=== PATIENT | male | born 1950 | race Caucasian/White ===

== ENCOUNTER 2017-12-29 11:44 | Emergency (ER) | payer OTHER ==
[~2017-12-29] VITALS: Ht 170.2 cm; Wt 84.4 kg
[~2017-12-29 11:44] MED LIST: ALBU90OI INH; AMIO200 PO; ASPI325 PO; ATOR20 PO; ATOR40TA PO; CARB100CH PO; CARB200 PO; CARB200ER PO; CYCL10 PO; DOCU100 PO; DULO60 PO; FAMO20 PO; Glucophage PO; HYDACE5 PO; HYDACE5325 PO; LEVSOD75 PO; Lisinopril2.5 MG PO; MEDICAL MARIJUANA; MELO7.5; MELO7.5 PO; METF500 PO; METO100 PO; METO25ER PO; Mobic15 MG PO; NAPR500 PO; OXYC5 PO; PROM25 PO; RANI150 PO; RXCYCL10 PO; TRIHYD253B PO; TRIHYD5075 PO; WARF5 PO; XARELTO20 MG PO
[2017-12-29] MEDS ORDERED: Prednisone20 MG PO (13:57)
[2017-12-29] MEDS ORDERED: CEPH500 PO (13:57)
== END 2017-12-29 14:09 | disposition home or self-care (01) ==
LOC: ER 11:44
DX: M79.675 Pain in left toe(s) (principal); Z88.2 Allergy status to sulfonamides; Z79.899 Other long term (current) drug therapy; G40.909 Epilepsy, unspecified, not intractable, without status epilepticus; E11.9 Type 2 diabetes mellitus without complications; F17.290 Nicotine dependence, other tobacco product, uncomplicated
CPT/HCPCS: 73660; 99283

== ENCOUNTER 2018-02-22 18:23 | Emergency (ER) | payer OTHER ==
[~2018-02-22] VITALS: Ht 167.6 cm; Wt 88.9 kg
[~2018-02-22 18:23] MED LIST changes: +CEPH500 PO; +Prednisone20 MG PO
== END 2018-02-22 20:33 | disposition home or self-care (01) ==
LOC: ER 18:23
DX: M75.81 Other shoulder lesions, right shoulder (principal); Z88.2 Allergy status to sulfonamides; Z79.899 Other long term (current) drug therapy; G40.909 Epilepsy, unspecified, not intractable, without status epilepticus; E11.9 Type 2 diabetes mellitus without complications; Z87.891 Personal history of nicotine dependence
CPT/HCPCS: 73030; 96372; 99283; J1885

== ENCOUNTER 2018-05-24 14:07 | Emergency (ER) | payer OTHER ==
[~2018-05-24] VITALS: Ht 170.2 cm; Wt 90.7 kg
[2018-05-24 16:21] LABS: BASOPHILS ABSOLUTE AUTO 0.04 K/mm3 (0.00-0.23); BASOPHILS PERCENT AUTO 1 % (0-2); EOSINOPHILS ABSOLUTE AUTO 0.56 K/mm3 (0.00-0.68); EOSINOPHILS PERCENT AUTO 6 % (0-6); Hematocrit 41.4 % (37.0-53.0); Hemoglobin 13.6 g/dL (13.5-17.5); IMMATURE GRAN ABSOLUTE AUTO 0.03 K/mm3 (0.00-0.10); IMMATURE GRAN PERCENT AUTO 0 % (0-1); LYMPHOCYTES ABSOLUTE AUTO 1.65 K/mm3 (0.84-5.20); LYMPHOCYTES PERCENT AUTO 19 % (21-46); MONOCYTES ABSOLUTE AUTO 1.06 K/mm3 (0.16-1.47); MONOCYTES PERCENT AUTO 12 % (4-13); Mean Corpuscular HGB 31.6 pg (26.0-34.0); Mean Corpuscular HGB Conc 32.9 g/dL (31.5-36.5); Mean Corpuscular Volume 96 fL (80-100); Mean Platelet Volume 10.2 fL (9.1-12.4); NEUTROPHILS ABSOLUTE AUTO 5.49 K/mm3 (1.96-9.15); NEUTROPHILS PERCENT AUTO 62 % (41-73); Platelet Count 238 K/mm3 (150-400); RDW Coefficient Variation 14.4 % (11.7-14.2); RDW Standard Deviation 51.4 fL (35.1-46.3); Red Blood Cell Count 4.31 M/mm3 (4.30-5.90); White Blood Cell Count 8.83 K/mm3 (4.00-11.30)
[2018-05-24] MEDS ORDERED: Tylenol325 MG PO (17:09)
== END 2018-05-24 17:16 | disposition home or self-care (01) ==
LOC: ER 14:07
PROVIDERS: Physician Assistant
DX: M79.671 Pain in right foot (principal); I25.10 Atherosclerotic heart disease of native coronary artery without angina pectoris; E11.9 Type 2 diabetes mellitus without complications; I10 Essential (primary) hypertension; Z87.891 Personal history of nicotine dependence; G40.909 Epilepsy, unspecified, not intractable, without status epilepticus; Z88.2 Allergy status to sulfonamides; Z79.899 Other long term (current) drug therapy
CPT/HCPCS: 73630; 84550; 85025; 99283-25

== ENCOUNTER → 2019-01-03 | Outpatient (CLI) | payer OTHER ==
[~2019-01-03] MED LIST changes: +Tylenol325 MG PO
== END | disposition home or self-care (01) ==
LOC: LAB SHORT 13:03 → LAB 13:03
DX: J02.9 Acute pharyngitis, unspecified (principal)
CPT/HCPCS: 87070

== ENCOUNTER 2019-01-26 11:05 | Day surgery (SDC) | payer OTHER ==
[~2019-01-26] VITALS: Ht 172.7 cm; Wt 90.9 kg
[~2019-01-26 11:05] MED LIST changes: +CHOL10002 PO; +CYAN500 PO; +DILTIAZEM 24HR240 M1 PO; +MELA3 PO; +METF500C PO
--- NOTE | 2019-01-26 12:13 | NUR ---
PT TALKING WITH FAMILY WITH CALL LIGHT IN REACH.
== END 2019-01-26 13:45 | disposition home or self-care (01) ==
LOC: MHTC 11:05
DX: I48.92 Unspecified atrial flutter (principal); I12.9 Hypertensive chronic kidney disease with stage 1 through stage 4 chronic kidney disease, or unspecified chronic kidney disease; E11.22 Type 2 diabetes mellitus with diabetic chronic kidney disease; N18.9 Chronic kidney disease, unspecified; I25.10 Atherosclerotic heart disease of native coronary artery without angina pectoris; J44.9 Chronic obstructive pulmonary disease, unspecified; E78.5 Hyperlipidemia, unspecified; E03.9 Hypothyroidism, unspecified; F17.210 Nicotine dependence, cigarettes, uncomplicated; Z79.899 Other long term (current) drug therapy; Z79.84 Long term (current) use of oral hypoglycemic drugs; Z79.82 Long term (current) use of aspirin; Z88.2 Allergy status to sulfonamides
CPT/HCPCS: 92960; 93005; 93010; 99152; J2250; J3010; J7030

== ENCOUNTER 2019-03-12 10:28 | Emergency (ER) | payer OTHER ==
[~2019-03-12] VITALS: Ht 170.2 cm; Wt 93.4 kg
[2019-03-12] MEDS ORDERED: METO25ER PO (10:33)
[2019-03-12 11:04] LABS: BASOPHILS ABSOLUTE AUTO 0.02 K/mm3 (0.00-0.23); BASOPHILS PERCENT AUTO 0 % (0-2); EOSINOPHILS ABSOLUTE AUTO 0.39 K/mm3 (0.00-0.68); EOSINOPHILS PERCENT AUTO 5 % (0-6); Hemoglobin 12.3 g/dL (13.5-17.5); IMMATURE GRAN ABSOLUTE AUTO 0.03 K/mm3 (0.00-0.10); IMMATURE GRAN PERCENT AUTO 0 % (0-1); LYMPHOCYTES ABSOLUTE AUTO 1.45 K/mm3 (0.84-5.20); LYMPHOCYTES PERCENT AUTO 17 % (21-46); MONOCYTES ABSOLUTE AUTO 0.86 K/mm3 (0.16-1.47); MONOCYTES PERCENT AUTO 10 % (4-13); Mean Corpuscular HGB 31.9 pg (26.0-34.0); Mean Corpuscular HGB Conc 33.2 g/dL (31.5-36.5); Mean Corpuscular Volume 96 fL (80-100); Mean Platelet Volume 10.2 fL (9.1-12.4); NEUTROPHILS ABSOLUTE AUTO 5.93 K/mm3 (1.96-9.15); NEUTROPHILS PERCENT AUTO 68 % (41-73); Platelet Count 153 K/mm3 (150-400); RDW Standard Deviation 49.2 fL (35.1-46.3); Red Blood Cell Count 3.85 M/mm3 (4.30-5.90); White Blood Cell Count 8.68 K/mm3 (4.00-11.30)
[2019-03-12 11:19] LABS: Alanine Aminotransfer (ALT/SGP 30 U/L (12-78); Albumin, Blood 3.4 g/dL (3.4-5.0); Albumin/Globulin Ratio 0.7 (0.8-1.8); Alk Phos 109 U/L (50-136); Anion Gap 7 mmol/L (6-16); Aspartate Aminotrans (AST/SGOT 15 U/L (12-37); Bilirubin, Total 0.7 mg/dL (0.1-1.0); Blood Urea Nitrogen 25 mg/dL (8-24); Bun/Creatinine Ratio 24.3 (12.0-20.0); CO2, Blood 29 mmol/L (21-32); Calcium, Blood 9.2 mg/dL (8.5-10.1); Chloride, Blood 103 mmol/L (98-108); Creatinine, Blood 1.03 mg/dL (0.60-1.20); Globulin, Blood 4.7 g/dL (2.2-4.0); Glomerular Filtration Rate >60 (60-); Glucose, Blood 128 mg/dL (70-99); Potassium, Blood 3.8 mmol/L (3.5-5.5); Sodium, Blood 139 mmol/L (136-145); Total Protein, Blood 8.1 g/dL (6.4-8.2)
== END 2019-03-12 12:20 | disposition home or self-care (01) ==
LOC: ER 10:28
PROVIDERS: Emergency Medicine
DX: M25.572 Pain in left ankle and joints of left foot (principal); R53.1 Weakness; W18.30XA Fall on same level, unspecified, initial encounter; Z88.2 Allergy status to sulfonamides; Z79.899 Other long term (current) drug therapy; Z79.84 Long term (current) use of oral hypoglycemic drugs; G40.909 Epilepsy, unspecified, not intractable, without status epilepticus; E11.9 Type 2 diabetes mellitus without complications; I10 Essential (primary) hypertension; Z87.891 Personal history of nicotine dependence; I25.10 Atherosclerotic heart disease of native coronary artery without angina pectoris
CPT/HCPCS: 36415; 71045; 73610; 80053; 85025; 99284-25

== ENCOUNTER 2019-11-29 19:47 | Observation (INO) | payer OTHER ==
[~2019-11-29] VITALS: Ht 170.2 cm; Wt 97.8 kg
[~2019-11-29 19:47] MED LIST changes: -ATOR40TA PO; -CHOL10002 PO; +LEVOXYL88 MCG PO; -METF500C PO; +VITAMIN D-32000 UNIT PO
[2019-11-29 20:41] LABS: BASOPHILS ABSOLUTE AUTO 0.04 K/mm3 (0.00-0.23); BASOPHILS PERCENT AUTO 0 % (0-2); EOSINOPHILS ABSOLUTE AUTO 0.53 K/mm3 (0.00-0.68); EOSINOPHILS PERCENT AUTO 5 % (0-6); Hematocrit 42.1 % (37.0-53.0); Hemoglobin 13.5 g/dL (13.5-17.5); IMMATURE GRAN ABSOLUTE AUTO 0.06 K/mm3 (0.00-0.10); IMMATURE GRAN PERCENT AUTO 1 % (0-1); LYMPHOCYTES ABSOLUTE AUTO 2.05 K/mm3 (0.84-5.20); LYMPHOCYTES PERCENT AUTO 19 % (21-46); MONOCYTES ABSOLUTE AUTO 0.91 K/mm3 (0.16-1.47); MONOCYTES PERCENT AUTO 9 % (4-13); Mean Corpuscular HGB 31.9 pg (26.0-34.0); Mean Corpuscular HGB Conc 32.1 g/dL (31.5-36.5); Mean Corpuscular Volume 100 fL (80-100); Mean Platelet Volume 10.7 fL (9.1-12.4); NEUTROPHILS ABSOLUTE AUTO 7.08 K/mm3 (1.96-9.15); NEUTROPHILS PERCENT AUTO 66 % (41-73); Platelet Count 209 K/mm3 (150-400); RDW Coefficient Variation 14.5 % (11.7-14.2); Red Blood Cell Count 4.23 M/mm3 (4.30-5.90); White Blood Cell Count 10.67 K/mm3 (4.00-11.30)
[2019-11-29 21:01] LABS: Alanine Aminotransfer (ALT/SGP 39 U/L (12-78); Albumin, Blood 3.4 g/dL (3.4-5.0); Albumin/Globulin Ratio 0.7 (0.8-1.8); Alk Phos 122 U/L (50-136); Anion Gap 7 mmol/L (6-16); Aspartate Aminotrans (AST/SGOT 29 U/L (12-37); Bilirubin, Total 0.4 mg/dL (0.1-1.0); Blood Urea Nitrogen 28 mg/dL (8-24); CO2, Blood 28 mmol/L (21-32); Calcium, Blood 9.5 mg/dL (8.5-10.1); Chloride, Blood 102 mmol/L (98-108); Creatinine, Blood 1.27 mg/dL (0.60-1.20); Globulin, Blood 4.9 g/dL (2.2-4.0); Glomerular Filtration Rate 59 (60-); Glucose, Blood 115 mg/dL (70-99); Potassium, Blood 4.5 mmol/L (3.5-5.5); Sodium, Blood 137 mmol/L (136-145); Total Protein, Blood 8.3 g/dL (6.4-8.2); Troponin I <0.015 ng/mL (0.000-0.040)
[2019-11-29 21:41] LABS: International Normalized Ratio 1.15; Prothrombin Time Results 12.2 Sec (9.7-11.5)
[2019-11-29] MEDS ORDERED: BACLOFEN5 MG PO (21:56)
[2019-11-29] MEDS ORDERED: ACET325 PO (21:58)
[2019-11-30 01:09] LABS: Source, Urine Clean Catch
[2019-11-30 01:15] LABS: Bilirubin, Urine Neg (Neg); Blood, Urine Neg (Neg); Glucose Qualitative, Urine Neg (Neg); Ketones, Urine Neg (Neg); Leukocyte Esterase, Urine Neg (Neg); Nitrite, Urine Neg (Neg); Protein, Urine Neg (Neg); Specific Gravity, Urine 1.015 (1.003-1.022); Urobilinogen, Urine NORM (Normal)
[2019-11-30 01:18] LABS: Appearance, Urine Clear (Clear); Color, Urine Yellow (P-Yellow)
--- NOTE | 2019-11-30 09:01 | NUR ---
Echocardiogram completed.
--- NOTE | 2019-11-30 14:32 | NUR ---
Additional echo images with 0.50ml of Definity contrast performed.
[2019-11-30] MEDS ORDERED: Baza Protect C142 GM TOP (14:43)
[2019-11-30] MEDS ORDERED: ALMACONE SUSPE355 ML PO (14:43)
[2019-11-30] MEDS ORDERED: BISA10S PR (14:44)
[2019-11-30] MEDS ORDERED: Enema133 M1 PR (14:44)
[2019-11-30] MEDS ORDERED: Anti-Diarrheal2 MG PO (14:45)
[2019-11-30] MEDS ORDERED: MILK OF MA400 MG/5 M PO (14:45)
[2019-11-30] MEDS ORDERED: ONDA4ODT MM (14:45)
[2019-11-30] MEDS ORDERED: Triple Antibio1 EACH TOP (14:46)
--- NOTE | 2019-11-30 18:26 | NUR ---
PT ARRIVED TO THE FLOOR THIS AFTERNOON. PT DENIES ANY FURTHER EPISODES OF SYNCOPY. PT ALERT AND ORIENTED, COOPERATIVE WITH CARE. PT UP IN BED WATCHING TELEVISION, NO FURTHER NEEDS AT THIS TIME.
--- NOTE | 2019-12-01 06:39 | NUR ---
SHIFT SUMMARY PT IS A 69 Y/O MALE, ADMITTED FOR A SYNCOPAL EPISODE AND COLLAPSE. HE IS A&O X 3, THOUGH FORGETFUL, AND A SBA WITH A FWW. TELE SHOWED SB/NSR IN THE 50-60S. NO COMPLAINTS OF PAIN, NAUSEA OR SOB. VITAL SIGNS STABLE. NO ACUTE CHANGES IN PT CONDITION NOTED. PT SLEPT WELL DURING THE NIGHT. WILL CONTINUE TO MONITOR AND TREAT PER EMAR UNTIL HAND OFF TO DAY SHIFT RN.
[2019-12-01 08:41] LABS: Anion Gap 5 mmol/L (6-16); Blood Urea Nitrogen 23 mg/dL (8-24); Bun/Creatinine Ratio 20.5 (12.0-20.0); CO2, Blood 29 mmol/L (21-32); Calcium, Blood 9.5 mg/dL (8.5-10.1); Chloride, Blood 107 mmol/L (98-108); Creatinine, Blood 1.12 mg/dL (0.60-1.20); Glomerular Filtration Rate >60 (60-); Glucose, Blood 121 mg/dL (70-99); Potassium, Blood 4.2 mmol/L (3.5-5.5); Sodium, Blood 141 mmol/L (136-145)
--- NOTE | 2019-12-01 18:42 | NUR ---
DISCHARGE NOTE PT DISCHARGED TO [facility] (HOME). SEE FAMILY SOCIOLOGIST NOTE. PT EDUCATED ON DISCHARGE INSTRUCTIONS AND MEDICATIONS. IV DC'D AND BELONGINGS RETURNED. HEART MONITOR PLACE PRIOR TO DC. PT LEFT ROOM VIA WHEELCHAIR AT 1620 VIA COOKER LOADER ESCORT TO TAXI AT PATIENT ENTRANCE.
== END 2019-12-01 16:41 | disposition home or self-care (01) ==
LOC: ER 19:47 → ERHOLD 19:48 → MEDS 11-30 13:09
PROVIDERS: Emergency Medicine; Internal Medicine; ADMIT Internal Medicine
DX: R55 Syncope and collapse (principal); I12.9 Hypertensive chronic kidney disease with stage 1 through stage 4 chronic kidney disease, or unspecified chronic kidney disease; E11.22 Type 2 diabetes mellitus with diabetic chronic kidney disease; N18.9 Chronic kidney disease, unspecified; I48.91 Unspecified atrial fibrillation; E03.9 Hypothyroidism, unspecified; F17.210 Nicotine dependence, cigarettes, uncomplicated; I25.10 Atherosclerotic heart disease of native coronary artery without angina pectoris; R00.1 Bradycardia, unspecified; Z95.1 Presence of aortocoronary bypass graft; Z95.2 Presence of prosthetic heart valve; Z88.2 Allergy status to sulfonamides; Z79.84 Long term (current) use of oral hypoglycemic drugs; Z79.899 Other long term (current) drug therapy
CPT/HCPCS: 36415; 70450; 71046; 80048; 80053; 81003; 84484; 85025; 85610; 85730; 87081; 90670; 93005; 93010; 93225; 93880; 97116; 97162; 97165; 99285-25; A9270; A9270-GY; C8929; G0378; Q9957

== ENCOUNTER → 2019-12-05 | Outpatient (CLI) | payer OTHER ==
[~2019-12-05] MED LIST changes: +ACET325 PO; +ALMACONE SUSPE355 ML PO; +Anti-Diarrheal2 MG PO; +BACLOFEN5 MG PO; +BISA10S PR; +Baza Protect C142 GM TOP; +Enema133 M1 PR; +MILK OF MA400 MG/5 M PO; +ONDA4ODT MM; +Triple Antibio1 EACH TOP
[2019-12-05 21:07] LABS: Bilirubin, Urine Neg (Neg); Blood, Urine Neg (Neg); Glucose Qualitative, Urine Neg (Neg); Ketones, Urine Neg (Neg); Leukocyte Esterase, Urine Neg (Neg); Nitrite, Urine Neg (Neg); Protein, Urine Neg (Neg); Urobilinogen, Urine NORM (Normal)
[2019-12-05 21:22] LABS: Appearance, Urine Clear (Clear); Color, Urine Yellow (P-Yellow)
== END | disposition home or self-care (01) ==
LOC: LAB 19:56 → LAB SHORT 19:56
PROVIDERS: Family Medicine
DX: N39.0 Urinary tract infection, site not specified (principal); E78.5 Hyperlipidemia, unspecified; Z71.89 Other specified counseling
CPT/HCPCS: 81003

== ENCOUNTER → 2020-02-15 | Outpatient (CLI) | payer OTHER | END | disposition home or self-care (01) | LOC: LAB SHORT 08:20 → LAB 08:20 | DX: E11.00 Type 2 diabetes mellitus with hyperosmolarity without nonketotic hyperglycemic-hyperosmolar coma (NKHHC) (principal) | CPT/HCPCS: 83036 ==

== ENCOUNTER 2020-03-13 12:12 | Day surgery (SDC) | payer OTHER ==
[~2020-03-13] VITALS: Ht 172.7 cm; Wt 101.9 kg
[~2020-03-13 12:12] MED LIST changes: +B-121000 MC3 PO; +Cymbalta60 MG PO; +EUTHYROX88 MCG PO; +LISINOPRIL2.5 MG PO; +OMEP20ER PO; +Vitamin D2000 UNIT PO
== END 2020-03-13 15:41 | disposition home or self-care (01) ==
LOC: ORSCSDS 12:12
PROVIDERS: Internal Medicine Gastroenterology
PROC: 0DBL8ZX Excision of Transverse Colon, Via Natural or Artificial Opening Endoscopic, Diagnostic (ICD-10-PCS; principal; 2020-03-13 14:00)
PROC: 0DBP8ZX Excision of Rectum, Via Natural or Artificial Opening Endoscopic, Diagnostic (ICD-10-PCS; principal; 2020-03-13 14:00)
DX: Z12.11 Encounter for screening for malignant neoplasm of colon (principal); Z86.010 Personal history of colon polyps; D12.3 Benign neoplasm of transverse colon; K63.5 Polyp of colon; K64.8 Other hemorrhoids; I48.91 Unspecified atrial fibrillation; E78.5 Hyperlipidemia, unspecified; I25.10 Atherosclerotic heart disease of native coronary artery without angina pectoris; I12.9 Hypertensive chronic kidney disease with stage 1 through stage 4 chronic kidney disease, or unspecified chronic kidney disease; E11.22 Type 2 diabetes mellitus with diabetic chronic kidney disease; N18.9 Chronic kidney disease, unspecified; Z79.84 Long term (current) use of oral hypoglycemic drugs
CPT/HCPCS: 82947; 88305; J2704; J7120

== ENCOUNTER → 2020-08-02 | Outpatient (CLI) | payer OTHER ==
[2020-08-03 12:57] LABS: Source, Urine Clean Catch
[2020-08-03 14:05] LABS: Appearance, Urine Clear (Clear); Blood, Urine Neg (Neg); Color, Urine Yellow (P-Yellow); Glucose Qualitative, Urine Neg (Neg); Ketones, Urine 1+ (Neg); Leukocyte Esterase, Urine Neg (Neg); Nitrite, Urine Neg (Neg); Protein, Urine 2+ (Neg); Urobilinogen, Urine NORM (Normal)
[2020-08-03 14:35] LABS: Bilirubin, Urine 1+ (Neg)
[2020-08-03 14:36] LABS: Bacteria Rare /hpf; Calcium Oxalate Crystals Few /hpf; Mucus Light (0-Heavy); Red Blood Cells, Urine Not Seen /hpf (0-2); Squamous Epithelial Cells Rare /hpf (Few); White Blood Cells, Urine Not Seen /hpf (0-5)
== END | disposition home or self-care (01) ==
LOC: LAB SHORT 12:53 → LAB 12:53
PROVIDERS: Family Medicine
DX: N39.0 Urinary tract infection, site not specified (principal)
CPT/HCPCS: 81001

== ENCOUNTER → 2020-11-28 | Outpatient (CLI) | payer OTHER ==
[~2020-11-28] MED LIST changes: +ALUM-MAG HYDROX30 ML PO; +Acetaminophen325 M1 PO; +BACLOFEN5 M1 PO; +CLOBETASOL EMOL15 G2 TOP; -Cymbalta60 MG PO; +DULCOLAX400 MG/5 M PO; -EUTHYROX88 MCG PO; +LEVSOD88 PO; -LISINOPRIL2.5 MG PO; +LOPE2C PO; -OMEP20ER PO; +ONDA4ODT SL; +Prilosec Otc20 MG PO; +Q-Tussin100 MG/5 M PO; +THERA-D2000 UNIT PO; +TRIPLE ANTIBIOT28 GM TOP
[2020-11-28 12:36] LABS: Albumin, Blood 3.2 g/dL (3.4-5.0); Anion Gap 6 mmol/L (6-16); Blood Urea Nitrogen 29 mg/dL (8-24); Bun/Creatinine Ratio 25.4 (12.0-20.0); CHOL/HDL RATIO 3.4; CO2, Blood 29 mmol/L (21-32); Calcium, Blood 9.5 mg/dL (8.5-10.1); Chloride, Blood 107 mmol/L (98-108); Cholesterol 129 mg/dL (50-200); Creatinine, Blood 1.14 mg/dL (0.60-1.20); Glomerular Filtration Rate >60 (60-); Glucose, Blood 94 mg/dL (70-99); HDL Cholesterol 38 mg/dL (>39); LDL/HDL RATIO 1.8; Low Density Lipoprotein Chol 69 mg/dL (0-110); Phosphorus, Blood 3.6 mg/dL (2.5-4.9); Potassium, Blood 4.1 mmol/L (3.5-5.5); Sodium, Blood 142 mmol/L (136-145); Triglycerides 109 mg/dL (30-160); Very Low Density Lipoprot Chol 21 mg/dL (6-32)
== END | disposition home or self-care (01) ==
LOC: LAB SHORT 09:08 → LAB 09:08 → EDSTATUS 08-27 10:45 → LAB FUT 08-27 10:45
PROVIDERS: Family Medicine
DX: E78.5 Hyperlipidemia, unspecified (principal); E11.9 Type 2 diabetes mellitus without complications
CPT/HCPCS: 80061; 80069; 83036

== ENCOUNTER 2021-03-01 09:38 | Inpatient (IN) | payer OTHER ==
[~2021-03-01] VITALS: Ht 170.2 cm; Wt 93.1 kg
[~2021-03-01 09:38] MED LIST changes: -ALUM-MAG HYDROX30 ML PO; -Acetaminophen325 M1 PO; -BACLOFEN5 M1 PO; -CLOBETASOL EMOL15 G2 TOP; -DULCOLAX400 MG/5 M PO; -LEVSOD88 PO; -LOPE2C PO; -ONDA4ODT SL; -Prilosec Otc20 MG PO; -Q-Tussin100 MG/5 M PO; -THERA-D2000 UNIT PO; -TRIPLE ANTIBIOT28 GM TOP
[2021-03-01] MEDS ORDERED: DULO60 PO (09:58)
[2021-03-01] MEDS ORDERED: BACLOFEN5 M1 PO (09:58)
[2021-03-01] MEDS ORDERED: ATOR20 PO (09:58)
[2021-03-01] MEDS ORDERED: Lisinopril2.5 MG PO (09:59)
[2021-03-01] MEDS ORDERED: LEVSOD88 PO (09:59)
[2021-03-01] MEDS ORDERED: METF500 PO (09:59)
[2021-03-01] MEDS ORDERED: Prilosec Otc20 MG PO (10:00)
[2021-03-01] MEDS ORDERED: METO25ER PO (10:00)
[2021-03-01] MEDS ORDERED: XARELTO20 MG PO (10:01)
[2021-03-01] MEDS ORDERED: Acetaminophen325 M1 PO (10:01)
[2021-03-01] MEDS ORDERED: THERA-D2000 UNIT PO (10:01)
[2021-03-01 10:13] LABS: BASOPHILS ABSOLUTE AUTO 0.03 K/mm3 (0.00-0.23); BASOPHILS PERCENT AUTO 0 % (0-2); EOSINOPHILS ABSOLUTE AUTO 0.12 K/mm3 (0.00-0.68); EOSINOPHILS PERCENT AUTO 1 % (0-6); IMMATURE GRAN ABSOLUTE AUTO 0.14 K/mm3 (0.00-0.10); IMMATURE GRAN PERCENT AUTO 1 % (0-1); LYMPHOCYTES ABSOLUTE AUTO 1.28 K/mm3 (0.84-5.20); LYMPHOCYTES PERCENT AUTO 11 % (21-46); MONOCYTES ABSOLUTE AUTO 1.24 K/mm3 (0.16-1.47); MONOCYTES PERCENT AUTO 11 % (4-13); Mean Corpuscular HGB 19.4 pg (26.0-34.0); Mean Corpuscular HGB Conc 24.7 g/dL (31.5-36.5); Mean Corpuscular Volume 78 fL (80-100); Mean Platelet Volume 11.2 fL (9.1-12.4); NEUTROPHILS PERCENT AUTO 75 % (41-73); NRBC ABSOLUTE 0.25 K/mm3 (0.00-0.02); NRBC Auto 2.2 /100 WBC (0.0-0.2); Platelet Count 225 K/mm3 (150-400); RDW Coefficient Variation 19.7 % (11.7-14.2); RDW Standard Deviation 55.3 fL (35.1-46.3); Red Blood Cell Count 2.22 M/mm3 (4.30-5.90); White Blood Cell Count 11.31 K/mm3 (4.00-11.30)
[2021-03-01 10:28] LABS: Troponin I 0.099 ng/mL (0.000-0.040)
[2021-03-01 10:44] LABS: Albumin, Blood 3.2 g/dL (3.4-5.0); Albumin/Globulin Ratio 0.7 (0.8-1.8); Bilirubin, Total 0.4 mg/dL (0.1-1.0); Bun/Creatinine Ratio 33.3 (12.0-20.0); Creatinine, Blood 1.59 mg/dL (0.60-1.20); Globulin, Blood 4.3 g/dL (2.2-4.0); Potassium, Blood 4.3 mmol/L (3.5-5.5); Total Protein, Blood 7.5 g/dL (6.4-8.2)
[2021-03-01 10:49] LABS: International Normalized Ratio 1.33; Prothrombin Time Results 14.1 Sec (9.7-11.5)
[2021-03-01 10:53] LABS: Hemoglobin 4.3 g/dL (13.5-17.5)
[2021-03-01 10:54] LABS: Hematocrit 17.4 % (37.0-53.0)
[2021-03-01] MEDS ORDERED: ALUM-MAG HYDROX30 ML PO (12:45)
[2021-03-01] MEDS ORDERED: ONDA4ODT SL (12:46)
[2021-03-01] MEDS ORDERED: DULCOLAX400 MG/5 M PO (12:46)
[2021-03-01] MEDS ORDERED: TRIPLE ANTIBIOT28 GM TOP (12:48)
[2021-03-01 12:50] LABS: Percent Saturation 2.5 % (20.0-50.0)
[2021-03-01] MEDS ORDERED: CLOBETASOL EMOL15 G2 TOP (12:53)
[2021-03-01] MEDS ORDERED: Q-Tussin100 MG/5 M PO (12:53)
[2021-03-01] MEDS ORDERED: LOPE2C PO (12:54)
[2021-03-01] MEDS ORDERED: BISA10S PR (12:54)
[2021-03-01 13:18] LABS: Hematocrit 14.5 % (37.0-53.0); Hemoglobin 3.9 g/dL (13.5-17.5)
[2021-03-01 14:48] LABS: Source, Urine Clean Catch
[2021-03-01 15:02] LABS: SARS-Cov-2 (COVID-19) PCR, MMC NEGATIVE (NEGATIVE)
[2021-03-01 15:03] LABS: Appearance, Urine Hazy (Clear); Bilirubin, Urine Neg (Neg); Blood, Urine 2+ (Neg); Color, Urine Yellow (P-Yellow); Glucose Qualitative, Urine Neg (Neg); Ketones, Urine 1+ (Neg); Leukocyte Esterase, Urine 2+ (Neg); Nitrite, Urine Neg (Neg); Protein, Urine 2+ (Neg); Specific Gravity, Urine 1.015 (1.003-1.022); Urobilinogen, Urine NORM (Normal)
[2021-03-01 15:20] LABS: Bacteria Many /hpf; Squamous Epithelial Cells Few /hpf (Few); White Blood Cells, Urine 25-50 /hpf (0-5)
[2021-03-01 16:47] LABS: Hematocrit 16.2 % (37.0-53.0); Hemoglobin 4.5 g/dL (13.5-17.5)
--- NOTE | 2021-03-01 18:40 | NUR ---
PT ARRIVED JUST BEFORE 1700 FROM ER VIA [facility]. PT IS A/O X4. DENIES PAIN AND N/V. PT STATES HE HAS BEEN GETTING SOB RECENTLY. ONE UNIT OF PRBC'S GIVEN IN ER AND SECOND UNIT BROUGHT WITH PT BUT NOT STARTED YET. STARTED UNIT OF BLOOD PROMPTLY. VITALS ARE STABLE. PT STATES HE HAS HAD SOME BLACK STOOL AT HOME. PROTONIX GTT RUNNNING. DR. JEFFERY SAW PT IN ER AND POSSIBLEY GOING TO DO EGD TONIGHT. NO SIGN OF BLEEDING YET. CALL LIGHT IN REACH AND PT DEMONSTRATES PROPER USE OF LIGHT. NO SIGN OF DISTRESS.
--- NOTE | 2021-03-01 19:20 | NUR ---
ASSUMING PT CARE: PT LAYING IN BED, RESTING W/ EYES CLOSED. AWAKES WHEN STAFF ENTERS ROOM, APPROPRIATELY INTERACTIVE & PLEASANT, HOWEVER PT IS UNSURE WHY HE IS IN THE HOSPITAL & IS OFTEN CONFUSED BY VS EQUIP, OFTEN PULLING OFF LEADS & PROBES. ABLE TO FOLLOW SIMPLE COMMANDS, EASILY REDIRECTED. VS STABLE. PT DENIES ANY COMPLAINTS. SEE INITIAL ASSESSMENT FOR FULL ASSESSMENT. BLOOD TRANSFUSION COMPLETE.
[2021-03-01 19:56] LABS: Hematocrit 19.2 % (37.0-53.0)
[2021-03-01 19:58] LABS: Hemoglobin 5.6 g/dL (13.5-17.5)
--- NOTE | 2021-03-01 20:11 | NUR ---
03/01/212010 Ravinder Rivas History, Chart, Medications and Allergies reviewed before start of procedure.MONITOR INTACT WITH CONTINUOUS PULSE OXIMETRY AND INTERMITTENT BP.3-LEAD EKG REVIEWED WITH PHYSICIAN PRIOR TO START OF PROCEDURE.O2 VIA N/C INTACT THROUGHOUT SEDATION/PROCEDURE. PATIENT DETERMINED TO BE ASA APPROPRIATE FOR PROPOFOL SEDATION PRIOR TO START OF PROCEDURE BY DR. JEFFERY.
--- NOTE | 2021-03-01 21:18 | NUR ---
UPDATE: BEDSIDE EGD COMPLETE. OR STAFF @ BEDSIDE TO MANAGE MEDS, JOSE D PERFORMED EGD. NO ACUTE FINDINGS. PT IS NOW AWAKE, ANSWERING QUESTIONS & ABLE TO FOLLOW SIMPLE DIRECTIONS. PT TOLERATED PROCEDURE WELL W/ NO PERSISTING CHANGES TO VS. DISCUSSED PT's RECENT FALLS @ HOME W/ JOSE D & CONCERN FOR OTHER SOURCES OF BLEEDING D/T TRAUMA. JOSE D STS HE IS NOT CONCERNED D/T FALL BEING NEARLY A WEEK AGO. NO NEW IMAGING ORDERS. PLAN FOR H&H RECHECK @ 0000. PER JOSE D, IF Hbg IS <7, INFUSE 1unit PRBCs.
[2021-03-02 01:49] LABS: Hematocrit 18.8 % (37.0-53.0)
[2021-03-02 01:51] LABS: Hemoglobin 5.7 g/dL (13.5-17.5)
[2021-03-02 05:10] LABS: BASOPHILS ABSOLUTE AUTO 0.02 K/mm3 (0.00-0.23); BASOPHILS PERCENT AUTO 0 % (0-2); EOSINOPHILS ABSOLUTE AUTO 0.14 K/mm3 (0.00-0.68); EOSINOPHILS PERCENT AUTO 2 % (0-6); Hematocrit 19.9 % (37.0-53.0); Hemoglobin 6.1 g/dL (13.5-17.5); IMMATURE GRAN ABSOLUTE AUTO 0.07 K/mm3 (0.00-0.10); IMMATURE GRAN PERCENT AUTO 1 % (0-1); LYMPHOCYTES ABSOLUTE AUTO 0.92 K/mm3 (0.84-5.20); LYMPHOCYTES PERCENT AUTO 12 % (21-46); MONOCYTES ABSOLUTE AUTO 0.84 K/mm3 (0.16-1.47); MONOCYTES PERCENT AUTO 11 % (4-13); Mean Corpuscular HGB 23.2 pg (26.0-34.0); Mean Corpuscular HGB Conc 30.7 g/dL (31.5-36.5); Mean Corpuscular Volume 76 fL (80-100); Mean Platelet Volume 10.6 fL (9.1-12.4); NEUTROPHILS ABSOLUTE AUTO 5.72 K/mm3 (1.96-9.15); NEUTROPHILS PERCENT AUTO 74 % (41-73); NRBC ABSOLUTE 0.12 K/mm3 (0.00-0.02); NRBC Auto 1.6 /100 WBC (0.0-0.2); Platelet Count 154 K/mm3 (150-400); RDW Standard Deviation 57.2 fL (35.1-46.3); Red Blood Cell Count 2.63 M/mm3 (4.30-5.90); White Blood Cell Count 7.71 K/mm3 (4.00-11.30)
[2021-03-02 05:34] LABS: Albumin, Blood 2.8 g/dL (3.4-5.0); Albumin/Globulin Ratio 0.7 (0.8-1.8); Bilirubin, Total 0.7 mg/dL (0.1-1.0); Bun/Creatinine Ratio 33.1 (12.0-20.0); Calcium, Blood 8.2 mg/dL (8.5-10.1); Creatinine, Blood 1.48 mg/dL (0.60-1.20); Globulin, Blood 3.8 g/dL (2.2-4.0); Potassium, Blood 3.8 mmol/L (3.5-5.5); Total Protein, Blood 6.6 g/dL (6.4-8.2)
--- NOTE | 2021-03-02 07:00 | NUR ---
SHIFT SUMMARY: PT WAS ABLE TO REST FOR THE MAJORITY OF THE NIGHT. AWAKING ONLY FOR REQUESTS FOR WATER & PT CARE. HE WAS INCONTINENT @ TIMES & @ OTHERS PT APPEARED TO BE CONFUSED ON HOW TO USE THE URINAL. MULTIPLE LINEN CHANGES PROVIDED. PT OTHERWISE STABLE W/ NO NEG CHANGES TO VS OR MENTATION. HE RECEIVED 1 UNIT PRBCs LAST NIGHT PER PETRE ORDERS, Hgb HAS NOT SIGNIFICANTLY IMPROVED, PLAN TO RE-EVALUATE W/ PETRE THIS MORNING. WILL DISCUSS THIS WILL AM RN.
[2021-03-02 15:08] LABS: Hematocrit 20.8 % (37.0-53.0); Hemoglobin 6.5 g/dL (13.5-17.5)
--- NOTE | 2021-03-02 15:26 | NUR ---
CALLED DR. JEFFERY WITH H&H RESULTS. NEW ORDERS FOR 2 UNITS OF PRBC'S. THEN FOLLOW UP H&H AFTER THE 2 UNITS. PT CONTINUES TO BE STABLE. NO CHANGES. NO SIGN OF BLEEDING.
--- NOTE | 2021-03-02 18:08 | NUR ---
SUMMARY PT HAD UNEVENTFUL DAY. A/O TO PERSON AND YEAR, SOMETIMES MONTH. GIVING SECOND UNIT OF PRBC'S NOW AND PT WILL HAVE H&H DRAWN AFTER SECOND UNIT. VITALS HAVE BEEN STABLE ALL DAY. NO SIGNS OF BLEEDING NOTED. BED ALARM ARMED FOR SAFETY PT IS FORGETFUL BUT NO ATTEMPT OOB TODAY. WATCHING TV NOW.
--- NOTE | 2021-03-02 19:15 | NUR ---
ASSUMING PT CARE: PT RESTING IN BED, RR EVEN & UNLABORED. APPROPRIATELY INTERACTIVE W/ STAFF. PT RECEIVING 1 unit PRBCS @ 150ml/hr. NO S/SX OF INF RXN. SKIN PALE, WARM, DRY. VS STABLE. WILL CONTINUE TO MONITOR & REPORT APPROPRIATE.
[2021-03-02 21:28] LABS: Hematocrit 28.1 % (37.0-53.0); Hemoglobin 8.8 g/dL (13.5-17.5)
[2021-03-03 03:39] LABS: BASOPHILS ABSOLUTE AUTO 0.03 K/mm3 (0.00-0.23); BASOPHILS PERCENT AUTO 0 % (0-2); EOSINOPHILS ABSOLUTE AUTO 0.34 K/mm3 (0.00-0.68); EOSINOPHILS PERCENT AUTO 5 % (0-6); Hemoglobin 8.5 g/dL (13.5-17.5); IMMATURE GRAN ABSOLUTE AUTO 0.09 K/mm3 (0.00-0.10); IMMATURE GRAN PERCENT AUTO 1 % (0-1); LYMPHOCYTES ABSOLUTE AUTO 0.87 K/mm3 (0.84-5.20); LYMPHOCYTES PERCENT AUTO 12 % (21-46); MONOCYTES ABSOLUTE AUTO 0.89 K/mm3 (0.16-1.47); MONOCYTES PERCENT AUTO 12 % (4-13); Mean Corpuscular HGB 24.5 pg (26.0-34.0); Mean Corpuscular HGB Conc 31.5 g/dL (31.5-36.5); Mean Corpuscular Volume 78 fL (80-100); NEUTROPHILS ABSOLUTE AUTO 5.08 K/mm3 (1.96-9.15); NEUTROPHILS PERCENT AUTO 70 % (41-73); NRBC ABSOLUTE 0.15 K/mm3 (0.00-0.02); NRBC Auto 2.1 /100 WBC (0.0-0.2); Platelet Count 159 K/mm3 (150-400); RDW Coefficient Variation 20.4 % (11.7-14.2); RDW Standard Deviation 57.7 fL (35.1-46.3); Red Blood Cell Count 3.47 M/mm3 (4.30-5.90)
[2021-03-03 03:58] LABS: Anion Gap 6 mmol/L (6-16); Blood Urea Nitrogen 34 mg/dL (8-24); Bun/Creatinine Ratio 27.4 (12.0-20.0); CO2, Blood 27 mmol/L (21-32); Calcium, Blood 8.5 mg/dL (8.5-10.1); Chloride, Blood 106 mmol/L (98-108); Creatinine, Blood 1.24 mg/dL (0.60-1.20); Glomerular Filtration Rate >60 (60-); Glucose, Blood 113 mg/dL (70-99); Potassium, Blood 3.8 mmol/L (3.5-5.5); Sodium, Blood 139 mmol/L (136-145)
--- NOTE | 2021-03-03 05:54 | NUR ---
SHIFT SUMMARY: PT RESTED WELL T/O THE NIGHT. NO COMPLAINTS. VS STABLE. PT BECOMING NOTABLY MORE INCONTINENT OVER THE PAST FEW DAYS. INITIALLY REQUESTING TO SIT ON THE TOILET & OFTEN USING THE URINAL, PT NOW FREQUENTLY INCONTINENT OF URINE & BOWEL. PT STS "IT CAME OUT OF NOWHERE" & DENIES ANY INCONTINENCE @ HOME. PLAN TO DISCUSS THIS W/ [place] STAFF & WHETHER OR NOT THIS IS PT's BASELINE. WOUNDS TO JEREMY FOREARMS CLEANSED & BANDAGES REPLACED. WOUNDS HEALING VERY WELL W/ SIGNIFICANT GRANULATION TISSUE GROWTH, SM AMT OF [place], & MILD BLEEDING. NO ACUTE NEG CHANGES. WILL CONTINUE TO MONITOR & REPORT APPROPRIATE.
--- NOTE | 2021-03-03 10:41 | NUR ---
PT A/O TO PERSON, YEAR, AND SURROUNDINGS. ATE BREAKFAST WITHOUT DIFFICULTY. PT HAS BEEN INCONTINENT. MOVES SELF AROUND IN BED. OFFERED TO GET PT TO CHAIR BUT PT ASKS IF WE CAN WAIT UNTIL LATER BECAUSE HE WANTS TO GET A LITTLE MORE SLEEP. BM THIS AM DID NOT APPEAR BLOODY. NO SIGN OF DISTRESS. CALL LIGHT IN REACH. BED ALARM ARMED DUE TO BEING FORGETFUL.
--- NOTE | 2021-03-03 16:25 | NUR ---
PT UP TO CHAIR WITH MINIMAL 1 PERSON ASSIST. DENIES CP OR DIZZINESS. NO SIGN OF DISTRESS.
--- NOTE | 2021-03-03 17:05 | NUR ---
SHIFT SUMMARY/TRANSFER NOTE PT AxOx3 WITH SOME MILD FORGETFULNESS. PLEASANT AND COOPERATIVE WITH CARE. PT TRANSFERRED FROM ICU TO MEDICAL FLOOR AT APPROX 1700. PT REPORTS GENERAL WEAKNESS. NOTED LEG WEAKNENING UPON TRANSFER FROM TO BED. BED ALARM ON FOR HX OF FALLS. RECOMMEND 2 PERSON ASSIST TO BSC WITH FWW AND GB. REVIEWED ICU NURSE (BLADE JUNE) SHIFT SUMMARY FOR 03/03/21, AND I AGREE THAT HER EARILIER ASSESSMENT IS CONSISTENT WITH MY CURRENT FINDINGS. MULTIPLE SKIN ABRASIONS AND BRUISING NOTED TO BUE FROM PREVIOUS FALL. VITALS REVIEWED. PT CURRENTLY RESTING IN BED WITH CALL LIGHT IN REACH. DENIES ANY NEEDS AT THIS TIME. IF PT REMAINS STABLE, PLAN IS FOR POSSIBLE DC TOMORROW BACK TO [facility] IF PT IS STABLE.
--- NOTE | 2021-03-03 21:56 | NUR ---
1957 PT LYING IN BED, DENIES ANY DISCOMFORT AT THIS TIME. PT HAS SKIN TEARS ON L ARM WITH SILICONE SKIN TEAR DRESSINGS ON THEM. NO APPARENT SIGNS OF DISTRESS. PT DENIES NEED FOR ANYTHING AT THIS TIME. CALL LIGHT IS IN REACH.
--- NOTE | 2021-03-03 22:44 | NUR ---
PT LYING IN BED, AWAKE, WATCHING TV. NO APPARENT SIGNS OF DISTRESS. GOT PT A CUP OF DECAF COFEE. CALL LIGHT IS IN REACH.
--- NOTE | 2021-03-03 23:46 | NUR ---
PT LYING IN BED, AWAKE, NO APPARENT SIGNS OF DISTRESS. DENIES NEED FOR ANYTHING AT THIS TIME. CALL LIGHT IS IN REACH.
--- NOTE | 2021-03-04 02:25 | NUR ---
PT LYING IN BED, AWAKE, PT ATTEMPTED TO USE URINAL, NO LUCK. PT DENIES NEED FOR ANYTHING ELSE AT THIS TIME. NO APPARENT SIGNS OF DISTRESS. CALL LIGHT IS IN REACH. BED ALARM IS ON.
--- NOTE | 2021-03-04 04:11 | NUR ---
PT LYING IN BED, EYES CLOSED, APPEARS TO BE RESTING. BREATHING IS EVEN, UNLABORED. NO APPARENT SIGNS OF DISTRESS. CALL LIGHT IS IN REACH. BED ALARM IS ON.
--- NOTE | 2021-03-04 04:13 | NUR ---
PT IS AAO X 3-4, ON RA. PT DENIED ANY DISCOMFORT FOR THIS SHIFT. PT DID GET FORGETFUL DURING THE NIGHT, BED ALARM IS ON. BS AT HS WAS 124. PT HAS SCABS AND BRUISES ON UE'S AND LE'S. PT HAS SKIN TEARS WITH DRESSINGS ON L ARM.
--- NOTE | 2021-03-04 05:22 | NUR ---
PT LYING IN BED, EYES CLOSED, APPEARS TO BE RESTING. WAKES EASILY TO VERBAL STIMULI. NO APPARENT SIGNS OF DISTRESS. CALL LIGHT IS IN REACH. BED ALARM IS ON. NO OTHER CHANGES THIS SHIFT.
[2021-03-04 05:44] LABS: BASOPHILS ABSOLUTE AUTO 0.04 K/mm3 (0.00-0.23); BASOPHILS PERCENT AUTO 1 % (0-2); EOSINOPHILS ABSOLUTE AUTO 0.31 K/mm3 (0.00-0.68); EOSINOPHILS PERCENT AUTO 4 % (0-6); Hematocrit 29.9 % (37.0-53.0); Hemoglobin 9.1 g/dL (13.5-17.5); IMMATURE GRAN ABSOLUTE AUTO 0.08 K/mm3 (0.00-0.10); IMMATURE GRAN PERCENT AUTO 1 % (0-1); LYMPHOCYTES ABSOLUTE AUTO 1.03 K/mm3 (0.84-5.20); LYMPHOCYTES PERCENT AUTO 14 % (21-46); MONOCYTES ABSOLUTE AUTO 0.88 K/mm3 (0.16-1.47); MONOCYTES PERCENT AUTO 12 % (4-13); Mean Corpuscular HGB 24.3 pg (26.0-34.0); Mean Corpuscular HGB Conc 30.4 g/dL (31.5-36.5); Mean Corpuscular Volume 80 fL (80-100); NEUTROPHILS ABSOLUTE AUTO 5.04 K/mm3 (1.96-9.15); NEUTROPHILS PERCENT AUTO 68 % (41-73); NRBC ABSOLUTE 0.02 K/mm3 (0.00-0.02); NRBC Auto 0.3 /100 WBC (0.0-0.2); Platelet Count 158 K/mm3 (150-400); RDW Coefficient Variation 21.6 % (11.7-14.2); RDW Standard Deviation 61.7 fL (35.1-46.3); Red Blood Cell Count 3.75 M/mm3 (4.30-5.90); White Blood Cell Count 7.38 K/mm3 (4.00-11.30)
[2021-03-04 05:54] LABS: Anion Gap 5 mmol/L (6-16); Blood Urea Nitrogen 25 mg/dL (8-24); Bun/Creatinine Ratio 23.4 (12.0-20.0); CO2, Blood 28 mmol/L (21-32); Calcium, Blood 8.8 mg/dL (8.5-10.1); Chloride, Blood 105 mmol/L (98-108); Creatinine, Blood 1.07 mg/dL (0.60-1.20); Glomerular Filtration Rate >60 (60-); Glucose, Blood 112 mg/dL (70-99); Potassium, Blood 3.5 mmol/L (3.5-5.5); Sodium, Blood 138 mmol/L (136-145)
--- NOTE | 2021-03-04 13:30 | NUR ---
DISCHARGE SUMMARY PT DISCHARGING HOME TO [facility] TODAY. PT AxOx3 WITH INTERMITTENT CONFUSION/FORGETFULNESS. PLEASANT AND COOPERATIVE WITH CARE. DENIES ANY PAIN. PT HAD NO BM ON THIS SHIFT. VITALS REVIEWED. SPOKE WITH TESSA SCHMITZ FROM [facility] FOR UPDATE AND PLAN TO DC. TEACHER MUSIC ALSO IN CONTACT WITH [facility] FOR DC PLANNING. VITALS REVIEWED. PT WAS SAFELY TRANSPORTED BY [facility] VIA BACK TO [facility].
== END 2021-03-04 13:33 | disposition home or self-care (01) | DRG 377 ==
LOC: ER 09:38 → PCU 12:05 → MEDS 12:05 → ICUE 12:05 → MEDS 03-03 16:59 → ENPENDDIS 03-04 12:02 → MEDS 03-04 13:33
PROVIDERS: Internal Medicine; Internal Medicine Gastroenterology; Physician Assistant; ADMIT Internal Medicine
PROC: 30233N1 Transfusion of Nonautologous Red Blood Cells into Peripheral Vein, Percutaneous Approach (ICD-10-PCS; 2021-03-01)
PROC: 0DJ08ZZ Inspection of Upper Intestinal Tract, Via Natural or Artificial Opening Endoscopic (ICD-10-PCS; principal; 2021-03-01 16:00)
DX: K55.21 Angiodysplasia of colon with hemorrhage (principal); G92 Toxic encephalopathy; N17.9 Acute kidney failure, unspecified; I42.8 Other cardiomyopathies; D62 Acute posthemorrhagic anemia; E87.2 Acidosis; N18.30 Chronic kidney disease, stage 3 unspecified; Z20.822 Contact with and (suspected) exposure to COVID-19; I95.1 Orthostatic hypotension; E11.22 Type 2 diabetes mellitus with diabetic chronic kidney disease; I12.9 Hypertensive chronic kidney disease with stage 1 through stage 4 chronic kidney disease, or unspecified chronic kidney disease; K21.9 Gastro-esophageal reflux disease without esophagitis; E03.9 Hypothyroidism, unspecified; F12.90 Cannabis use, unspecified, uncomplicated; I25.10 Atherosclerotic heart disease of native coronary artery without angina pectoris; E78.5 Hyperlipidemia, unspecified; G40.909 Epilepsy, unspecified, not intractable, without status epilepticus; F17.210 Nicotine dependence, cigarettes, uncomplicated; Z88.2 Allergy status to sulfonamides; Z79.899 Other long term (current) drug therapy; Z79.84 Long term (current) use of oral hypoglycemic drugs; Z79.01 Long term (current) use of anticoagulants; Z86.010 Personal history of colon polyps; Z95.2 Presence of prosthetic heart valve
CPT/HCPCS: 36415; 36430; 70450; 71045; 80048; 80053; 81001; 82272; 82330; 82728; 82947; 83540; 83550; 83605; 83880; 84484; 85014; 85018; 85025; 85610; 85730; 86850; 86900; 86901; 86923; 87077; 87086; 87186; 93005; 93010; 96365; 96366; 96376; 99285-25; A9270; C9113; J0171; J1430; J2250; J2704; J7030; J7050; J7120; P9016; U0004

== ENCOUNTER → 2021-03-06 | Outpatient (CLI) | payer OTHER ==
[~2021-03-06] MED LIST changes: +ALUM-MAG HYDROX30 ML PO; +Acetaminophen325 M1 PO; +BACLOFEN5 M1 PO; +CLOBETASOL EMOL15 G2 TOP; +DULCOLAX400 MG/5 M PO; +LEVSOD88 PO; +LOPE2C PO; +ONDA4ODT SL; +Prilosec Otc20 MG PO; +Q-Tussin100 MG/5 M PO; +THERA-D2000 UNIT PO; +TRIPLE ANTIBIOT28 GM TOP
[2021-03-06 12:22] LABS: Source, Urine Clean Catch
[2021-03-06 12:57] LABS: Appearance, Urine Clear (Clear); Bilirubin, Urine Neg (Neg); Blood, Urine 1+ (Neg); Color, Urine Yellow (P-Yellow); Glucose Qualitative, Urine Neg (Neg); Ketones, Urine Neg (Neg); Leukocyte Esterase, Urine 3+ (Neg); Nitrite, Urine Pos (Neg); Protein, Urine 2+ (Neg); Urobilinogen, Urine NORM (Normal)
[2021-03-06 13:06] LABS: Bacteria Many /hpf; White Blood Cells, Urine 50-100 /hpf (0-5)
[2021-03-06 13:07] LABS: Squamous Epithelial Cells Few /hpf (Few)
== END | disposition home or self-care (01) ==
LOC: LAB SHORT 12:19 → LAB 12:19
PROVIDERS: Family Medicine
DX: N39.0 Urinary tract infection, site not specified (principal)
CPT/HCPCS: 81001; 87077; 87086; 87186

== ENCOUNTER → 2021-03-12 | Outpatient (CLI) | payer OTHER ==
[2021-03-12 14:24] LABS: BASOPHILS ABSOLUTE AUTO 0.06 K/mm3 (0.00-0.23); BASOPHILS PERCENT AUTO 1 % (0-2); EOSINOPHILS ABSOLUTE AUTO 0.41 K/mm3 (0.00-0.68); EOSINOPHILS PERCENT AUTO 4 % (0-6); Hematocrit 31.2 % (37.0-53.0); Hemoglobin 9.2 g/dL (13.5-17.5); IMMATURE GRAN PERCENT AUTO 1 % (0-1); LYMPHOCYTES PERCENT AUTO 13 % (21-46); MONOCYTES ABSOLUTE AUTO 0.97 K/mm3 (0.16-1.47); MONOCYTES PERCENT AUTO 10 % (4-13); Mean Corpuscular HGB 24.2 pg (26.0-34.0); Mean Corpuscular HGB Conc 29.5 g/dL (31.5-36.5); Mean Corpuscular Volume 82 fL (80-100); NEUTROPHILS ABSOLUTE AUTO 7.05 K/mm3 (1.96-9.15); NEUTROPHILS PERCENT AUTO 71 % (41-73); NRBC ABSOLUTE 0.02 K/mm3 (0.00-0.02); NRBC Auto 0.2 /100 WBC (0.0-0.2); RDW Coefficient Variation 23.7 % (11.7-14.2); RDW Standard Deviation 69.4 fL (35.1-46.3); White Blood Cell Count 9.89 K/mm3 (4.00-11.30)
[2021-03-12 14:26] LABS: Mean Platelet Volume 11.2 fL (9.1-12.4); Platelet Count 319 K/mm3 (150-400)
== END | disposition home or self-care (01) ==
LOC: LAB SHORT 07:55
PROVIDERS: Nurse Practitioner Family
DX: M10.9 Gout, unspecified (principal); D64.9 Anemia, unspecified
CPT/HCPCS: 84550; 85025

== ENCOUNTER → 2021-03-15 | Outpatient (CLI) | payer OTHER ==
[2021-03-15 14:52] LABS: Percent Saturation 5.5 % (20.0-50.0)
== END ==
LOC: LAB SHORT 07:39
PROVIDERS: Family Medicine
DX: D64.9 Anemia, unspecified (principal)
CPT/HCPCS: 83540; 83550

== ENCOUNTER → 2022-01-08 | Outpatient (CLI) | payer OTHER | LOC: LAB SHORT 08:05 | DX: E11.9 Type 2 diabetes mellitus without complications (principal) | CPT/HCPCS: 83036 ==

== ENCOUNTER → 2022-04-01 | Outpatient (CLI) | payer OTHER ==
[2022-04-01 13:28] LABS: Source, Urine Clean Catch
[2022-04-01 15:08] LABS: Bilirubin, Urine Neg (Neg); Blood, Urine Neg (Neg); Color, Urine Yellow (P-Yellow); Glucose Qualitative, Urine Neg (Neg); Ketones, Urine Neg (Neg); Leukocyte Esterase, Urine Neg (Neg); Nitrite, Urine Neg (Neg); Protein, Urine Neg (Neg); Specific Gravity, Urine 1.015 (1.003-1.022); Urobilinogen, Urine NORM (Normal)
[2022-04-01 15:34] LABS: Appearance, Urine Hazy (Clear); Bacteria Mod /hpf; Red Blood Cells, Urine 0-2 /hpf (0-2); Squamous Epithelial Cells Rare /hpf (Few); White Blood Cells, Urine 0-2 /hpf (0-5)
== END | disposition home or self-care (01) ==
LOC: LAB SHORT 10:00 → LAB 10:00
PROVIDERS: Family Medicine
DX: N39.0 Urinary tract infection, site not specified (principal)
CPT/HCPCS: 81001; 87077; 87086; 87186

== ENCOUNTER → 2023-01-12 | Outpatient (CLI) | payer OTHER ==
[2023-01-12 18:21] LABS: Source, Urine Clean Catch
[2023-01-12 19:19] LABS: Appearance, Urine Clear (Clear); Bilirubin, Urine Neg (Neg); Blood, Urine Neg (Neg); Color, Urine Yellow (P-Yellow); Glucose Qualitative, Urine Neg (Neg); Ketones, Urine Neg (Neg); Leukocyte Esterase, Urine Neg (Neg); Nitrite, Urine Neg (Neg); Protein, Urine 2+ (Neg); Specific Gravity, Urine 1.015 (1.003-1.022); Urobilinogen, Urine NORM (Normal)
[2023-01-12 19:38] LABS: Bacteria Few /hpf; Red Blood Cells, Urine 0-2 /hpf (0-2); Squamous Epithelial Cells Rare /hpf (Few); White Blood Cells, Urine 0-2 /hpf (0-5)
== END | disposition home or self-care (01) ==
LOC: LAB 18:19 → LAB SHORT 18:19
PROVIDERS: Family Medicine
DX: N39.0 Urinary tract infection, site not specified (principal)
CPT/HCPCS: 81001

== ENCOUNTER → 2023-01-28 | Outpatient (CLI) | payer OTHER ==
[2023-01-28 10:37] LABS: CHOL/HDL RATIO 2.9; Cholesterol 112 mg/dL (50-200); HDL Cholesterol 39 mg/dL (>39); LDL/HDL RATIO 1.3; Low Density Lipoprotein Chol 52 mg/dL (0-110); Triglycerides 104 mg/dL (30-160); Uric Acid, Blood 9.1 mg/dL (3.5-7.2); Very Low Density Lipoprot Chol 20 mg/dL (6-32)
== END | disposition home or self-care (01) ==
LOC: LAB 07:40 → LAB SHORT 07:40
PROVIDERS: Registered Nurse
DX: E03.9 Hypothyroidism, unspecified (principal); M79.89 Other specified soft tissue disorders; E78.2 Mixed hyperlipidemia; E11.42 Type 2 diabetes mellitus with diabetic polyneuropathy
CPT/HCPCS: 80061; 83036; 84443; 84550

== ENCOUNTER → 2023-07-08 | Outpatient (CLI) | payer OTHER | LOC: LAB EV 14:39 → LAB SHORT 14:39 | DX: E11.9 Type 2 diabetes mellitus without complications (principal) | CPT/HCPCS: 83036 ==

== ENCOUNTER → 2023-10-08 | Outpatient (CLI) | payer OTHER | LOC: LAB SHORT 12:13 → LAB 12:13 | DX: E11.00 Type 2 diabetes mellitus with hyperosmolarity without nonketotic hyperglycemic-hyperosmolar coma (NKHHC) (principal) | CPT/HCPCS: 83036 ==

== ENCOUNTER → 2024-01-13 | Outpatient (CLI) | payer OTHER | END | disposition home or self-care (01) | LOC: LAB SHORT 15:09 → LAB 15:09 | DX: E11.9 Type 2 diabetes mellitus without complications (principal) | CPT/HCPCS: 83036 ==

== ENCOUNTER 2024-01-27 20:00 | Emergency (ER) | payer OTHER ==
[~2024-01-27] VITALS: Ht 170.2 cm; Wt 90.7 kg
[2024-01-27 20:46] LABS: BASOPHILS ABSOLUTE AUTO 0.03 K/mm3 (0.00-0.23); BASOPHILS PERCENT AUTO 1 % (0-2); EOSINOPHILS ABSOLUTE AUTO 0.44 K/mm3 (0.00-0.68); EOSINOPHILS PERCENT AUTO 7 % (0-6); Hematocrit 40.1 % (37.0-53.0); IMMATURE GRAN ABSOLUTE AUTO 0.04 K/mm3 (0.00-0.10); IMMATURE GRAN PERCENT AUTO 1 % (0-1); LYMPHOCYTES ABSOLUTE AUTO 1.09 K/mm3 (0.84-5.20); LYMPHOCYTES PERCENT AUTO 17 % (21-46); MONOCYTES ABSOLUTE AUTO 0.47 K/mm3 (0.16-1.47); MONOCYTES PERCENT AUTO 7 % (4-13); Mean Corpuscular HGB 31.6 pg (26.0-34.0); Mean Corpuscular HGB Conc 32.4 g/dL (31.5-36.5); Mean Corpuscular Volume 97 fL (80-100); Mean Platelet Volume 10.4 fL (9.1-12.4); NEUTROPHILS ABSOLUTE AUTO 4.41 K/mm3 (1.96-9.15); NEUTROPHILS PERCENT AUTO 68 % (41-73); Platelet Count 211 K/mm3 (150-400); RDW Coefficient Variation 13.5 % (11.7-14.2); RDW Standard Deviation 47.8 fL (35.1-46.3); Red Blood Cell Count 4.12 M/mm3 (4.30-5.90); White Blood Cell Count 6.48 K/mm3 (4.00-11.30)
[2024-01-27 21:04] LABS: Albumin, Blood 3.4 g/dL (3.4-5.0); Albumin/Globulin Ratio 0.8 (0.8-1.8); Bilirubin, Total 0.4 mg/dL (0.1-1.0); Bun/Creatinine Ratio 30.3 (12.0-20.0); Calcium, Blood 10.6 mg/dL (8.5-10.1); Creatinine, Blood 0.89 mg/dL (0.60-1.20); Globulin, Blood 4.2 g/dL (2.2-4.0); Potassium, Blood 4.2 mmol/L (3.5-5.5); Total Protein, Blood 7.6 g/dL (6.4-8.2)
[2024-01-27 23:36] LABS: Source, Urine Clean Catch
[2024-01-27 23:47] LABS: Appearance, Urine Clear (Clear); Bilirubin, Urine Neg (Neg); Blood, Urine Neg (Neg); Color, Urine Yellow (P-Yellow); Glucose Qualitative, Urine Neg (Neg); Ketones, Urine Neg (Neg); Leukocyte Esterase, Urine Neg (Neg); Nitrite, Urine Neg (Neg); Protein, Urine 2+ (Neg); Specific Gravity, Urine 1.025 (1.003-1.022); Urobilinogen, Urine NORM (Normal)
[2024-01-28] VITALS: BP 139/88
[2024-01-28 00:20] LABS: Bacteria Few /hpf; Red Blood Cells, Urine 0-2 /hpf (0-2); Squamous Epithelial Cells Mod /hpf (Few); White Blood Cells, Urine 0-2 /hpf (0-5)
== END 2024-01-28 01:56 | disposition home or self-care (01) ==
LOC: ER 20:00
PROVIDERS: Physician Assistant
DX: R53.1 Weakness (principal); Z88.2 Allergy status to sulfonamides; Z79.899 Other long term (current) drug therapy; Z79.84 Long term (current) use of oral hypoglycemic drugs; E11.9 Type 2 diabetes mellitus without complications; G40.909 Epilepsy, unspecified, not intractable, without status epilepticus; M06.9 Rheumatoid arthritis, unspecified; I10 Essential (primary) hypertension; I48.92 Unspecified atrial flutter; E03.9 Hypothyroidism, unspecified; F17.200 Nicotine dependence, unspecified, uncomplicated
CPT/HCPCS: 71046; 80053; 81001; 85025; 99285-25

== ENCOUNTER → 2024-04-06 | Outpatient (CLI) | payer OTHER | LOC: LAB 12:57 → LAB SHORT 12:57 | DX: E11.9 Type 2 diabetes mellitus without complications (principal) | CPT/HCPCS: 83036 ==

== ENCOUNTER 2024-10-14 08:58 | Emergency (ER) | payer OTHER ==
[~2024-10-14] VITALS: Ht 172.7 cm; Wt 72.6 kg
[2024-10-14] MEDS ORDERED: NS 1,000 ML IV SCH (09:25)
[2024-10-14] MEDS ORDERED: Ipratropium/Albuterol SulF 2.5-0.5MG/3 ML Amp INH ONE (09:25)
[2024-10-14 09:36] LABS: BASOPHILS ABSOLUTE AUTO 0.05 K/mm3 (0.00-0.23); BASOPHILS PERCENT AUTO 1 % (0-2); EOSINOPHILS ABSOLUTE AUTO 1.24 K/mm3 (0.00-0.68); EOSINOPHILS PERCENT AUTO 14 % (0-6); Hematocrit 42.2 % (37.0-53.0); Hemoglobin 13.6 g/dL (13.5-17.5); IMMATURE GRAN ABSOLUTE AUTO 0.05 K/mm3 (0.00-0.10); IMMATURE GRAN PERCENT AUTO 1 % (0-1); LYMPHOCYTES ABSOLUTE AUTO 1.47 K/mm3 (0.84-5.20); LYMPHOCYTES PERCENT AUTO 16 % (21-46); MONOCYTES ABSOLUTE AUTO 0.74 K/mm3 (0.16-1.47); MONOCYTES PERCENT AUTO 8 % (4-13); Mean Corpuscular HGB 30.5 pg (26.0-34.0); Mean Corpuscular HGB Conc 32.2 g/dL (31.5-36.5); Mean Corpuscular Volume 95 fL (80-100); Mean Platelet Volume 10.4 fL (9.1-12.4); NEUTROPHILS ABSOLUTE AUTO 5.59 K/mm3 (1.96-9.15); NEUTROPHILS PERCENT AUTO 61 % (41-73); Platelet Count 201 K/mm3 (150-400); RDW Coefficient Variation 13.9 % (11.7-14.2); RDW Standard Deviation 48.4 fL (35.1-46.3); Red Blood Cell Count 4.46 M/mm3 (4.30-5.90); White Blood Cell Count 9.14 K/mm3 (4.00-11.30)
[2024-10-14 09:57] LABS: CORONAVIRUS COVID-19 AG Negative (NEGATIVE); INFLUENZA A AG Negative (NEGATIVE); INFLUENZA B AG Negative (NEGATIVE)
[2024-10-14 10:16] LABS: Albumin, Blood 3.6 g/dL (3.4-5.0); Albumin/Globulin Ratio 0.7 (0.8-1.8); Bilirubin, Total 0.4 mg/dL (0.1-1.0); Bun/Creatinine Ratio 29.8 (12.0-20.0); Calcium, Blood 10.5 mg/dL (8.5-10.1); Creatinine, Blood 0.84 mg/dL (0.60-1.20); Globulin, Blood 4.9 g/dL (2.2-4.0); Magnesium, Blood 1.1 mg/dL (1.6-2.4); Potassium, Blood 4.7 mmol/L (3.5-5.5); Total Protein, Blood 8.5 g/dL (6.4-8.2)
[2024-10-14] MEDS ORDERED: Magnesium Sulf 2 GM/Water 50ML 100 ML IV ONE (10:20)
[2024-10-14] MEDS ORDERED: Albuterol 2.5 MG/3 ML VIAL INH SCH (10:50)
[2024-10-14] MEDS ORDERED: PredniSONE 20 MG Tab PO ONE (10:50)
[2024-10-14] MEDS ORDERED: Metoprolol Tartrate 1 MG/ML 5 ML VIAL IV PRN (11:35)
[2024-10-14] MEDS ORDERED: Metoprolol Tartrate 1 MG/ML 5 ML VIAL IV ONE (11:50)
[2024-10-14] MEDS ORDERED: ONDA4ODT MM (12:39)
[2024-10-14] MEDS ORDERED: ALBU90OI INH (12:39)
[2024-10-14] MEDS ORDERED: PRED20 PO (12:39)
[2024-10-14] MEDS ORDERED: Metoprolol Tartrate 25 MG Tab PO ONE (12:40)
[2024-10-14 15:28] VITALS: BP 92/67
== END 2024-10-14 15:31 | disposition home or self-care (01) ==
LOC: ER 08:58
PROVIDERS: Student in an Organized Health Care Education/Training Program
DX: I48.92 Unspecified atrial flutter (principal); J20.9 Acute bronchitis, unspecified; E83.42 Hypomagnesemia; E86.0 Dehydration; F17.210 Nicotine dependence, cigarettes, uncomplicated; E11.9 Type 2 diabetes mellitus without complications; E03.9 Hypothyroidism, unspecified; E78.5 Hyperlipidemia, unspecified; Z79.84 Long term (current) use of oral hypoglycemic drugs; Z79.899 Other long term (current) drug therapy; Z88.2 Allergy status to sulfonamides
CPT/HCPCS: 71046; 80053; 83735; 85025; 87428-QW; 93005; 93010; 94640; 94645; 94664; 96365; 96375; 99285-25; A9270; J3475; J7030; J7512